=== PATIENT | female | born 1955 | race Caucasian/White ===

== ENCOUNTER 2020-04-28 14:10 | Emergency (ER) | payer SELFPAY ==
--- NOTE | 2020-04-28 15:15 | ER ---
Nurse's Notes [facility] Name: Carola Terry Age: 65 yrs Sex: Female : 1955 Arrival Date: 04/28/2020 Time: 14:14 Bed 5 Private MD: Diagnosis: Hypertension;Epistaxis Presentation: 04/28 14:26 Chief complaint: Patient states: Nose bleed that began just prior to arrival. Pt ss reports she was seen at [facility] in [place] yesterday for a nose bleed which they believe was because of her high blood pressure. Pt reports she does not have a history of high blood pressure and believes it may be because of her anxiety. Pt saw her doctor today and felt fine. Pt was instructed to use Afrin as needed for nose bleeds, but did not use it yet. Coronavirus screen: Client denies travel out of the [place] in the last 14 days. Ebola Screen: Patient denies exposure to infectious person. Patient denies travel to an Ebola-affected area in the 21 days before illness onset. Initial Sepsis Screen: Does the patient meet any 2 criteria? No. Patient's initial sepsis screen is negative. Does the patient have a suspected source of infection? No. Patient's initial sepsis screen is negative. Risk Assessment: Do you want to hurt yourself or someone else? Patient reports no desire to harm self or others. Onset of symptoms was April 26, 2020. 14:26 Method Of Arrival: Ambulatory ss 14:26 Acuity: MARGARET 3 ss Historical: - Allergies: 14:29 Codeine; ss - PMHx: 14:29 Anxiety; Panic Attacks; Depression; cervical CA; ss - PSHx: 14:29 Hysterectomy; ss - Immunization history:: Adult Immunizations up to date. - Social history:: Smoking status: Patient denies any tobacco usage or history of. Screenin:39 Abuse screen: Denies threats or abuse. Denies injuries from another. Nutritional hb screening: No deficits noted. Tuberculosis screening: No symptoms or risk factors identified. Fall Risk None identified. Assessment: 14:50 General: Appears in no apparent distress. Behavior is calm, cooperative. Pain: Denies hb pain. Neuro: Level of Consciousness is awake, alert, obeys commands, Oriented to person, place, time, situation. Cardiovascular: Capillary refill < 3 seconds Patient's skin is warm and dry. Respiratory: Respiratory effort is even, unlabored, Respiratory pattern is regular, symmetrical. GI: No signs and/or symptoms were reported involving the gastrointestinal system. : No signs and/or symptoms were reported regarding the genitourinary system. EENT: Reports epistaxis, nose clamp in place. Derm: Skin is pink, warm \T\ dry. Musculoskeletal: No signs and/or symptoms reported regarding the musculoskeletal system. Vital Signs: 14:25 BP 146 / 82; Pulse 105; Resp 20; Temp 98.7(TE); Pulse Ox 100% on R/A; Weight 60.78 kg; ss Height 5 ft. 1 in. (154.94 cm); Pain 0/10; 15:30 BP 136 / 76; Pulse 88; Resp 15; Pulse Ox 99% on R/A; hb 14:25 Body Mass Index 25.32 (60.78 kg, 154.94 cm) ED Course: 14:14 Patient arrived in ED. mr 14:28 Triage completed. ss 14:29 Arm band placed on right wrist. ss 15:01 [facility]C [facility]. snw 15:01 Ryder White MD is Attending Physician. snw 15:26 Jennie Mitchell, JAEL is Primary Nurse. hb 15:39 Patient has correct armband on for positive identification. hb 15:39 No provider procedures requiring assistance completed. Patient did not have IV access hb during this emergency room visit. Administered Medications: 15:39 Drug: Metoprolol 25 mg Route: PO; hb 15:39 Follow up: Response: Medication administered at discharge. hb Outcome: 15:15 Discharge ordered by . snw 15:29 Discharged to home ambulatory. hb 15:29 Condition: stable 15:29 Discharge instructions given to patient, Instructed on discharge instructions, follow up and referral plans. medication usage, Demonstrated understanding of instructions, follow-up care, medications, Prescriptions given X 2. 15:40 Patient left the ED. hb Signatures: Kelle Bean FNP-C FNP-Nguyen Ame GreenYvette rea, JAEL RN Jennie Mitchell, JAEL RN hb
--- NOTE | 2020-04-28 15:15 | EDPHYS ---
Physician Documentation [facility] Name: Carola Terry Age: 65 yrs Sex: Female : 1955 Arrival Date: 04/28/2020 Time: 14:14 Bed 5 Private MD: ED Physician Ryder White HPI: 04/28 15:13 This 65 yrs old Female presents to ER via Ambulatory with complaints of Nose snw Bleed, Blood Pressure Problem. 15:13 The patient presents with a nose bleed, that is apparently anterior, from the left snw nare, occurred from an unknown cause, that is intermittent causative factors include: possible blood pressure issue and the bleeding resolved prior to arrival. Onset: The symptoms/episode began/occurred suddenly, 2 day(s) ago, and became persistent. Modifying factors: The symptoms are alleviated by anti-hypertensive medication(s), pressure. Associated signs and symptoms: Pertinent positives: headache. Severity of symptoms: At their worst the symptoms were severe in the emergency department the symptoms have improved. The patient has not experienced similar symptoms in the past. The patient has been recently seen by a physician: as noted. Historical: - Allergies: 14:29 Codeine; ss - PMHx: 14:29 Anxiety; Panic Attacks; Depression; cervical CA; ss - PSHx: 14:29 Hysterectomy; ss - Immunization history:: Adult Immunizations up to date. - Social history:: Smoking status: Patient denies any tobacco usage or history of. ROS: 15:11 Constitutional: Negative for fever, chills, and weight loss, Eyes: Negative for injury, snw pain, redness, and discharge, ENT: Negative for injury, pain. +epistaxis intermittently x 2 days. Seen by another ED and PCP in the past two days Neck: Negative for injury, pain, and swelling, Cardiovascular: Negative for chest pain, palpitations, and edema, Respiratory: Negative for shortness of breath, cough, wheezing, and pleuritic chest pain, Abdomen/GI: Negative for abdominal pain, nausea, vomiting, diarrhea, and constipation, Back: Negative for injury and pain, : Negative for injury, bleeding, discharge, and swelling, MS/Extremity: Negative for injury and deformity, Skin: Negative for injury, rash, and discoloration, Neuro: Negative for headache, weakness, numbness, tingling, and seizure. 15:11 Psych: Positive for anxiety. Exam: 15:08 Constitutional: This is a well developed, well nourished patient who is awake, alert, snw and in no acute distress. Head/Face: Normocephalic, atraumatic. Eyes: Pupils equal round and reactive to light, extra-ocular motions intact. Lids and lashes normal. Conjunctiva and sclera are non-icteric and not injected. Cornea within normal limits. Periorbital areas with no swelling, redness, or edema. Neck: Trachea midline, no thyromegaly or masses palpated, and no cervical lymphadenopathy. Supple, full range of motion without nuchal rigidity, or vertebral point tenderness. No Meningismus. Chest/axilla: Normal chest wall appearance and motion. Nontender with no deformity. No lesions are appreciated. Respiratory: Lungs have equal breath sounds bilaterally, clear to auscultation and percussion. No rales, rhonchi or wheezes noted. No increased work of breathing, no retractions or nasal flaring. Abdomen/GI: Soft, non-tender, with normal bowel sounds. No distension or tympany. No guarding or rebound. No evidence of tenderness throughout. Back: No spinal tenderness. No costovertebral tenderness. Full range of motion. Skin: Warm, dry with normal turgor. Normal color with no rashes, no lesions, and no evidence of cellulitis. MS/ Extremity: Pulses equal, no cyanosis. Neurovascular intact. Full, normal range of motion. Neuro: Awake and alert, GCS 15, oriented to person, place, time, and situation. Cranial nerves II-XII grossly intact. Motor strength 5/5 in all extremities. Sensory grossly intact. Cerebellar exam normal. Normal gait. 15:08 ENT: External ear(s): are unremarkable, Nose: External nose: no obvious acute abnormality, Nasal mucosa: Dried blood. to left nare, Mouth: is normal, Posterior pharynx: is normal, Voice: is normal. 15:08 Psych: Behavior/mood is cooperative, anxious, Affect is animated, Oriented to person, place, time. Vital Signs: 14:25 BP 146 / 82; Pulse 105; Resp 20; Temp 98.7(TE); Pulse Ox 100% on R/A; Weight 60.78 kg; ss Height 5 ft. 1 in. (154.94 cm); Pain 0/10; 15:30 BP 136 / 76; Pulse 88; Resp 15; Pulse Ox 99% on R/A; hb 14:25 Body Mass Index 25.32 (60.78 kg, 154.94 cm) ss MDM: 15:15 Patient medically screened. snw 15:17 Data reviewed: vital signs, nurses notes. Data interpreted: Pulse oximetry: on room air snw is 100 %. Interpretation: normal. Counseling: I had a detailed discussion with the patient and/or guardian regarding: the historical points, exam findings, and any diagnostic results supporting the discharge/admit diagnosis, the presence of at least one elevated blood pressure reading (>120/80) during this emergency department visit, the need for outpatient follow up, to return to the emergency department if symptoms worsen or persist or if there are any questions or concerns that arise at home. Special discussion: I have referred the patient to see his PCP for further evaluation of high blood pressure. Based on the history and exam findings, there is no indication for further emergent testing or inpatient evaluation. I discussed with the patient/guardian the need to see the primary care provider for further evaluation of the symptoms. Administered Medications: 15:39 Drug: Metoprolol 25 mg Route: PO; hb 15:39 Follow up: Response: Medication administered at discharge. hb Disposition: 04/28/20 15:15 Discharged to Home. Impression: Hypertension, Epistaxis. - Condition is Stable. - Discharge Instructions: Nosebleed, Adult, Hypertension, How to Take Your Blood Pressure, [id number], Cryotherapy, Managing Your Hypertension, Form - Blood Pressure Record Sheet. - Prescriptions for Metoprolol Tartrate 25 mg Oral Tablet - take 1 tablet by ORAL route 2 times per day with a meal; 20 tablet. Afrin (oxymetazoline) 0.05 % Nasal Aerosol, [place] - spray 2 spray by INTRANASAL route 2 times per day; 1 Container. - Medication Reconciliation Form, Thank You Letter, Antibiotic Education, Prescription Opioid Use form. - Follow up: Emergency Department; When: As needed; Reason: Worsening of condition. Follow up: Private Physician; When: 2 - 3 days; Reason: Recheck today's complaints, Continuance of care, Re-evaluation by your physician. Addendum: 04/30/2020 18:43 Co-signature as Attending Physician, Ryder White MD I agree with the assessment and k dr plan of care. Signatures: Ryder White MD MD kdr Waters, Shelly, ANDREZ-C EMBALMER/FUNERAL DIRECTOR-Csnw Yvette Guillermo, RN RN Jennie Mitchell, JAEL RN Corrections: (The following items were deleted from the chart) 04/28 15:40 15:15 04/28/2020 15:15 Discharged to Home. Impression: Hypertension; Epistaxis. hb Condition is Stable. Forms are Medication Reconciliation Form, Thank You Letter, Antibiotic Education, Prescription Opioid Use. Follow up: Emergency Department; When: As needed; Reason: Worsening of condition. Follow up: Private Physician; When: 2 - 3 days; Reason: Recheck today's complaints, Continuance of care, Re-evaluation by your physician. snw
[2020-04-28] MEDS ORDERED: METOPROLOL TAR 25 MG TAB ONE (15:40)
[2020-04-28 15:49] VITALS: BP 146/82; TEMP 98.7; O2SAT 100
== END 2020-04-28 15:40 | disposition home or self-care (01) ==
LOC: ER 14:10
DX: R04.0 Epistaxis (principal); I10 Essential (primary) hypertension; F41.9 Anxiety disorder, unspecified; Z88.5 Allergy status to narcotic agent; Z85.41 Personal history of malignant neoplasm of cervix uteri
CPT/HCPCS: 99283